=== PATIENT | male | born 1995 | race Two or more races ===

== ENCOUNTER 2018-01-15 08:27 | Day surgery (SDC) | payer MEDICAID, OTHER ==
[2018-01-15] MEDS ORDERED: LR 1,000 ML IV ONE (08:54)
[2018-01-15] MEDS ORDERED: LIDOCAINE 1% 2 ML INJ ID PRN (08:54)
[2018-01-15] MEDS ORDERED: MIDAZOLAM 2 MG/2 ML VIAL IVP ONE (09:17)
--- NOTE | 2018-01-15 09:24 | PDANEPAE ---
ANE Past Medical History - Cardiovascular History Hx Hypertension: No Hx Arrhythmias: No Hx Chest Pain: No Hx Coronary Artery / Peripheral Vascular Disease: No Hx CHF / Valvular Disease: No Hx Palpitations: No Cardiovascular History Comment: has a baseline low heart rate - Pulmonary History Hx COPD: No Hx Asthma/Reactive Airway Disease: No Hx Recent Upper Respiratory Infection: No Hx Oxygen in Use at Home: No Hx Sleep Apnea: No Sleep Apnea Screening Result - Last Documented: Negative Pulmonary History Comment: Smoker - Neurologic History Hx Cerebrovascular Accident: No Hx Seizures: Yes Hx Dementia: No Neurologic History Comment: dx 2009 with epilepsy, has grand-mal & drop seizures. raynaud's - Endocrine History Hx Diabetes: No - Renal History Hx Renal Disorders: No - Liver History Hx Hepatic Disorders: No - Neurological & Psychiatric Hx Hx Neurological and Psychiatric Disorders: Yes Neurological / Psychiatric History Comment: hx severe depression - Cancer History Hx Cancer: No - Congenital Disorder History Hx Congenital Disorders: No - GI History Hx Gastrointestinal Disorders: No - Other Health History Other Health History: arthritis - chronic pain in ankles, hips, spine. pt uses medical marijuana "when he feels a seizure coming on". history collected from pts mother - Chronic Pain History Chronic Pain: Yes (ankles, hips, spine) - Surgical History Prior Surgeries: cholecystectomy. appendectomy. vagal nerve stimulator installed. undistended testicle repair ANE Review of Systems Review of Systems: - Exercise capacity METS (RN): 4 METS ANE Patient History - Allergies Allergies/Adverse Reactions: divalproex sodium [From Depakote] Allergy (Verified 01/12/18 16:59) suicidal tendencies levetiracetam [From Keppra] Allergy (Verified 01/12/18 16:59) suicidal tendencies - Home Medications Home Medications: Banzel 01/12/18 [Last Taken 01/15/18] Felbamate 01/12/18 [Last Taken 01/15/18] Onfi 01/12/18 [Last Taken 01/15/18] Potassium Bitart/Sodium Bicarb 01/12/18 [Last Taken 01/15/18] Zolpidem Tartrate 01/12/18 [Last Taken 01/15/18] traZODone 01/12/18 [Last Taken 01/15/18] - Smoking Hx Smoking Status: Current every day smoker - Family Anes Hx Family Hx Anesthesia Complications: mother & grandmother get itchy ANE Labs/Vital Signs - Labs Result Diagrams: 01/15/18 09:46 - Vital Signs Height: 177.8 cm Weight: 68.039 kg ANE Physical Exam - Airway Neck exam: FROM Mallampati Score: Class 2 Mouth exam: poor dentition - Pulmonary Pulmonary: clear to auscultation - Cardiovascular Cardiovascular: regular rate and rhythym - ASA Status ASA Status: IV ANE Anesthesia Plan Anesthesia Plan: general endotracheal anesthesia, GA w LMA (GA LMA vs ETT)
[2018-01-15] MEDS ORDERED: BUPIVACAINE 0.25% 10 ML SDV ONE (09:27)
[2018-01-15] MEDS ORDERED: DEXMEDETOMIDINE HCL 400 MCG in NS 100 ML IV SCH (09:30)
--- NOTE | 2018-01-15 09:41 | PDHPUP ---
History & Physical Update H&P update statement: This history and physical update is based on an assessment of the patient which was completed after admission or registration (within 24 hours), but prior to the surgery/procedure. H&P update: H&P reviewed & patient examined, no change in patient's condition since H&P completed
--- NOTE | 2018-01-15 09:42 | POSTOPPROG ---
<Jaylan Braswell - Last Filed: 01/15/18 11:13> Post Op Note Date of Operation: 01/15/18 Surgeon: Jaylan Braswell Specimen(s): left breast <Elsy Alvarez - Last Filed: 01/15/18 14:18> Post Op Note Date of Operation: 01/15/18 Surgeon: Jaylan Braswell Dinkey Engine Firer/Fireman: Elsy Alvarez PA-C Anesthesiologist: Sidra Rutledge Pre-op Diagnosis: Left breast gynecomastia Post-op Diagnosis: same Procedure: Left breast mastectomy for gynecomastia Inf/Abcess present in the surg proc area at time of surgery?: No EBL: Minimal Complications: no immediate
[2018-01-15 09:45] LABS: PLATELET COUNT 270 10^3/uL (150-400)
[2018-01-15] MEDS ORDERED: fentaNYL 100 MCG/2 ML INJ ONE (10:12)
[2018-01-15] MEDS ORDERED: PROPOFOL/EMULSION 500 MG/50 ML BOTTLE IV ONE (10:12)
[2018-01-15] MEDS ORDERED: PROPOFOL 200 MG/20 ML VIAL ONE (10:13)
--- NOTE | 2018-01-15 10:54 | POSTANESTH ---
Post Anesthetic Evaluation Cardiovascular Status: Normal, Stable Respiratory Status: Normal, Stable Level of Consciousness/Mental Status: Can Participate in Eval Pain Control: Adequate, Prn Tx Ordered Nausea/Vomiting Control: Adequate, Prn Tx Ordered Complications Possibly Related to Anesthesia: None Noted
[2018-01-15] MEDS ORDERED: fentaNYL 100 MCG/2 ML INJ IVP PRN (10:57)
[2018-01-15] MEDS ORDERED: LR 500 ML IV PRN (10:57)
[2018-01-15] MEDS ORDERED: PROMETHAZINE HCL 25 MG/ML INJ IVP PRN (10:57)
[2018-01-15] MEDS ORDERED: LABETALOL HCL 20 MG/4 ML INJ IVP PRN (10:57)
[2018-01-15] MEDS ORDERED: HYDROmorphONE/DILAUDID 2 MG/ML INJ IVP PRN (10:57)
[2018-01-15] MEDS ORDERED: DEXAMETHASONE 4 MG/ML VIAL IVP PRN (10:57)
[2018-01-15] MEDS ORDERED: ONDANSETRON 4 MG/2 ML VIAL IVP PRN (10:57)
[2018-01-15] MEDS ORDERED: oxyCODONE IR 5 MG TAB PO PRN (10:57)
[2018-01-15] MEDS ORDERED: DIAZEPAM 5 MG/ML 1 ML SYR IVP PRN (10:57)
[2018-01-15] MEDS ORDERED: ACETAMINOPHEN 500 MG TAB PO PRN (10:57)
[2018-01-15] MEDS ORDERED: METOCLOPRAMIDE 10 MG/2 ML VIAL IVP PRN (10:57)
[2018-01-15] MEDS ORDERED: NALOXONE HCL 0.4 MG/ML INJ IVP PRN (10:57)
[2018-01-15] MEDS ORDERED: MIDAZOLAM 2 MG/2 ML VIAL IVP PRN (10:58)
[2018-01-15] MEDS ORDERED: KETOROLAC 30 MG/1 ML SDV ONE (11:00)
[2018-01-15 13:38] VITALS: BP 110/67
--- NOTE | 2018-01-15 14:47 | GOP ---
DATE OF OPERATION: 01/15/2018 SURGEON: Jaylan Braswell MD SECURITY ENGINEER: Elsy Alvarez PA-C. ANESTHESIA: General. ANESTHESIOLOGIST: Dr. Sidra Rutledge. PREOPERATIVE DIAGNOSIS: Left gynecomastia. POSTOPERATIVE DIAGNOSIS: Left gynecomastia. PROCEDURE PERFORMED: Left mastectomy. FINDINGS: See below. INDICATIONS: 22-year-old male with symptomatic enlarging left breast gynecomastia as well as a family history of breast carcinoma. He is undergoing surgical excision at this time. Risks and benefits were explained of bleeding, infection, recurrence of seroma formation, as well as others. All questions were answered. He desires to proceed. A surgical clinical reviewer is standard necessary and customary for the safe performance of this procedure. DESCRIPTION OF PROCEDURE: After general anesthesia was induced, the breast was infiltrated with 0.5% Marcaine with epinephrine. A 12 o'clock circumareolar incision was created. Superficial skin flaps were created toward the upper breast as the fibroglandular tissue tapered to normal subcutaneous fat. This was taken circumferentially and removed from the chest wall incorporating the pectoralis major fascia. Satisfactory hemostasis was assured. The nipple was cleared of all visible fibroglandular tissue. The defect was closed in layers with absorbable sutures followed by Dermabond. The patient was taken to recovery uneventfully. /[id number]/MODL MTDD
== END 2018-01-15 13:27 | disposition home or self-care (01) ==
LOC: FSGY 08:27
PROVIDERS: ATTEND Surgery
PROC: 0HBU0ZZ Excision of Left Breast, Open Approach (ICD-10-PCS; principal; 2018-01-15 10:15)
DX: N62 Hypertrophy of breast (principal); Z80.3 Family history of malignant neoplasm of breast; G40.909 Epilepsy, unspecified, not intractable, without status epilepticus; M15.0 Primary generalized (osteo)arthritis
CPT/HCPCS: J1885; J2250; J2704; J3010